=== PATIENT | male | born 1960 | race Caucasian/White ===

== ENCOUNTER 2018-09-02 08:57 | Day surgery (SDC) | payer BC, OTHER ==
[~2018-09-02 08:57] MED LIST: LIDOCAINE HCL 1% MPF 30 SOL ONE; PROPOFOL 500 MG/50 ML EMU IV ONE
[2018-09-02] MEDS ORDERED: TDAP VACCINE 0.5 ML SUS IM ONE ×2 (10:01→10:46)
[2018-09-02 11:17] VITALS: RESP 16
[2018-09-02 11:33] VITALS: BP 134/84; PULSE 70; TEMP 98.4; O2SAT 96
== END 2018-09-02 11:53 | disposition home or self-care (01) ==
LOC: SURG 08:57
PROVIDERS: ATTEND Surgery
DX: Z12.11 Encounter for screening for malignant neoplasm of colon (principal); K57.32 Diverticulitis of large intestine without perforation or abscess without bleeding
CPT/HCPCS: 90471; 90715; J2001; J2704